=== PATIENT | female | born 2000 ===

== ENCOUNTER 2023-07-17 00:52 | Emergency (ER) | payer SELFPAY | END 2023-07-17 01:56 | disposition left against medical advice (07) | LOC: ERS 00:52 | DX: Z53.21 Procedure and treatment not carried out due to patient leaving prior to being seen by health care provider (principal) ==

== ENCOUNTER 2023-09-07 09:09 | Outpatient (CLI) | payer OTHER | END 2023-09-07 09:10 | disposition home or self-care (01) | LOC: BICULT 09:09 | PROVIDERS: ATTEND Family Medicine | DX: Z34.02 Encounter for supervision of normal first pregnancy, second trimester (principal); Z3A.20 20 weeks gestation of pregnancy | CPT/HCPCS: 76805 ==